=== PATIENT | male | born 1975 | race Caucasian/White ===

== ENCOUNTER 2018-05-01 17:07 | Observation (INO) ==
[2018-05-01] MEDS ORDERED: APRESOLINE INJ 20 MG VIAL IVP PRN (17:52)
[2018-05-01] MEDS ORDERED: NORCO 10/325 TAB PO PRN (17:52)
[2018-05-01] MEDS ORDERED: VALIUM PO ONE (17:53)
[2018-05-01] MEDS ORDERED: AMLODIPINE BESYLATE OLMESARTAN PO SCH (18:00)
--- NOTE | 2018-05-01 18:15 | DR.H&P ---
H&P - History & Physical for Day of: H&P Date: 05/01/18 - Chief Complaint Chief Complaint: ELEVATED BP, DIZZINESS, SWOLLEN ALL OVER, FALL WITH HEAD INJURY , SOB - History of Present Illness History of Present Illness: PT IS 43 WM DIRECT ADMIT FROM DR MARCUS OFFICE AFTER PRESENTING WITH DIFFUSE EDEMA TO FACE ABDOMEN UPPER AND LOWER EXTREMITIES. PT HAS HX OF HTN AND HX NEPHRECTOMY. PT BP IN OFFICE 188/112 WITH BILATERAL LOWER EXTREMITY PITTING EDEMA AND HERRERA. PT SPOUSE STATES SHE HAS BEEN VERY SLEEPY, WEAK AND DIZZINESS, FALLS WITH RECENT HEAD INJURY. PT STATES HE BEEN TAKING MEDICAITON PRESCRIBED. PT ALSO HAD CO NECK AND LOWER BACK PAIN WITH WEAKNESS IN HANDS AND LOWER EXTREMITIES. - Past Medical History Past Medical History: Arthritis, Hypertension - Past Surgical History Surgical History: Other - Family History Family Medical History: Hypertension - Social History Does patient currently use any type of tobacco product: No Have you used tobacco products in the last 12 months: No Type of Tobacco Use: None Does any household member use tobacco: No Alcohol Use: None Drug Use: None - Medications Home Medications: MS No Known Drug Allergy [No Known Drug Allergy] Allergy (Verified 07/25/16 14: 04) - Review of Systems Constitutional: Weakness Eyes: No Symptoms Reported ENT: No Symptoms Reported Respiratory: SOB with Excertion Cardiovascular: Edema Gastrointestinal: Nausea Genitourinary: No Symptoms Reported Musculoskeletal: Arm Pain, Back Pain, Leg Pain, Neck Pain Skin: Wound (SCALP) Neurological: Weakness, Numbness (RIGHT HAND, LOWER EXTREMITIES) - Physical Exam Vital Signs: Blood Pressure [Left Arm] 145/91 Blood Pressure 144/91 Oriented: Normal Eyes: Normal Ear: Normal Nose: Normal Throat: Normal Respiratory: RLL Diminished, LLL Diminished Cardiovascular: Tachycardia, Edema : Normal Auscultation: Bowel Sounds: Normal Palpation: Normal Tenderness: Epigastric Skin: Wound (SF RIGHT SIDE SCALP LACERATION) Musculoskeletal: Wrist, Hand, Back:Thoracic, Back:Lumbar, Tender, Sensory Deficit Psychiatric: Normal Mood Description: Anxious Affect: Anxious Speech Pattern: Clear - Assessment/Plan (1) Hypertensive urgency Status: Acute Plan: ADMIT, SERIAL EKG, CE. ADMISSION LABS CBC CMP UA, CT ABD PELVIS. DECREASE URINE OUTPUT, HTN MANAGEMENT IV HYDRALAZINE. CXR ON ADMISSION, L SPINE , C SPINE MRI. PAIN AND NAUSEA CONTROL (2) SOB (shortness of breath) Status: Acute (3) Edema Status: Acute (4) Hx of unilateral nephrectomy Status: Acute (5) Degenerative joint disease (DJD) of lumbar spine Status: Acute (6) Cervical radiculopathy due to degenerative joint disease of spine Status: Acute (7) Dizziness Status: Acute - Allergies Allergies/Adverse Reactions: Allergies Allergy/AdvReac Type Severity Reaction Status Date / Time MS No Known Drug Allergy Allergy Verified 07/25/16 14:04 [No Known Drug Allergy]
[2018-05-01 18:16] LABS: BASOPHILS # (AUTO) 0.1 X10^3/uL (0.0-0.1); BASOPHILS % (AUTO) 0.7 % (0.2-1.0); EOSINOPHILS # (AUTO) 0.7 x10^3/uL (0.0-0.2); EOSINOPHILS % (AUTO) 6.8 % (0.9-2.9); HEMATOCRIT 36.3 % (42.0-54.0); HEMOGLOBIN 12.2 g/dL (13.5-18.0); LYMPHOCYTES # (AUTO) 2.8 X10^3/uL (1.3-2.9); LYMPHOCYTES % (AUTO) 29.2 % (21.0-51.0); MEAN CORPUSCULAR HEMOGLOBIN 30.8 pg (27.0-34.0); MEAN CORPUSCULAR HGB CONC 33.5 g/dL (33.0-35.0); MEAN CORPUSCULAR VOLUME 91.9 fL (80.0-100.0); MEAN PLATELET VOLUME 7.5 fL (7.4-11.0); MONOCYTES # (AUTO) 0.7 x10^3/uL (0.3-0.8); MONOCYTES % (AUTO) 7.5 % (0.0-13.0); NEUTROPHILS # (AUTO) 5.3 x10^3/uL (2.2-4.8); NEUTROPHILS % (AUTO) 55.8 % (42.0-75.0); PLATELET COUNT 324 X10^3/uL (150.0-450.0); RED BLOOD COUNT 3.95 X10^6/uL (4.7-6.0); RED CELL DISTRIBUTION WIDTH 15.4 % (11.6-16.5); WHITE BLOOD COUNT 9.6 X10^3/uL (3.6-10.0)
[2018-05-01 18:40] LABS: BLOOD UREA NITROGEN 14 mg/dL (7-18); CALCIUM 9.1 mg/dL (8.5-10.1); CARBON DIOXIDE 26.2 mmol/L (21-32); CHLORIDE 106 mmol/L (98-107); CREATININE 1.91 mg/dL (0.70-1.30); SODIUM 140 mmol/L (136-145); TROPONIN I < 0.02 ng/mL (0-1.5); eGFR NON BLACK RACES 41 (>60)
--- NOTE | 2018-05-01 18:44 | RAD ---
HISTORY: Shortness of breath. Study: Single-view chest. Comparison: None. Findings: The trachea is midline. The cardiac silhouette is within normal limits. The lungs are clear without focal infiltrate or effusion. The bony thorax is unremarkable. IMPRESSION: No acute cardiopulmonary disease. Reported By:
[2018-05-01 18:46] LABS: ALANINE AMINOTRANSFERASE 27 Units/L (12-78); ALKALINE PHOSPHATASE 137 Units/L (46-116); ASPARTATE AMINO TRANSFERASE 22 Units/L (15-37); CKMB % 0.7 % (<4); COR CA(FOR HYPOALB) 9.9 mg/dL (8.5-10.1); CREATINE KINASE 307 Units/L (39-308); CREATINE KINASE MB 2.2 ng/mL (0-4.0); TOTAL PROTEIN 7.1 g/dL (6.4-8.2)
--- NOTE | 2018-05-01 18:46 | CT ---
HISTORY: Abdominal pain and distention. Study: CT abdomen and pelvis without contrast Comparison: None. Technique: Multiple axial images of the abdomen and pelvis were obtained from the lung bases to the pubic symphy sis without the administration of IV contrast. Dose reduction techniques including Automated Exposur e Control (AEC) and adjustment of mA and kV were utilized. Limited study secondary to lack of IV and oral contrast. Findings: Bibasilar scarring versus atelectasis. Otherwise, the visualized portions of the lung bases are unrem arkable. The left kidney is surgically absent. The liver, spleen, pancreas, right kidney, and adrena l glands are unremarkable in their CT appearance. The gallbladder is unremarkable in its CT appearanc e. No significant mesenteric lymphadenopathy or stranding can be observed. No free fluid or free ai r is seen within the abdomen. Limited evaluation of the large and small bowel secondary to the lack of oral contrast and collapse. The large and small bowel are otherwise unremarkable. The appendix sagrario ears surgically absent. The urinary bladder is grossly unremarkable. Degenerative changes of the spi ne. No aggressive osseous lesions. IMPRESSION: No CT evidence of acute abdominal/pelvic pathology. Reported By:
[2018-05-01] MEDS: NICOTINE PATCH TD SCH (19:33)
[2018-05-01] MEDS ORDERED: ZESTRIL TAB 10 MG PO ONE (20:21)
[2018-05-01] MEDS ORDERED: NORVASC TAB 10 MG PO ONE (20:21)
[2018-05-01 20:50] VITALS: BMI 31.1
[2018-05-01 20:53] LABS: BILIRUBIN,URINE NEGATIVE (NEGATIVE); BLOOD/HEMOGLOBIN,URINE 1+ (NEGATIVE); GLUCOSE, URINE NEGATIVE (NEGATIVE); KETONES,URINE NEGATIVE (NEGATIVE); LEUKOCYTE ESTERASE ,URINE NEGATIVE (NEGATIVE); NITRITES,URINE NEGATIVE (NEGATIVE); PROTEIN,URINE 4+ (NEGATIVE); UROBILINOGEN,URINE NORMAL (NORMAL)
[2018-05-01 21:00] LABS: APPEARANCE,URINE CLEAR (CLEAR); COLOR,URINE YELLOW (YELLOW); RBC,URINE 0-2 /HPF (NONE SEEN); SQUAMOUS EPITHELIAL CELL,UR FEW /HPF (NEGATIVE)
[2018-05-01 21:01] LABS: BACTERIA,URINE NEGATIVE /HPF (NEGATIVE)
[2018-05-02 06:20] LABS: BASOPHILS % (AUTO) 0.6 % (0.2-1.0); EOSINOPHILS # (AUTO) 0.7 x10^3/uL (0.0-0.2); EOSINOPHILS % (AUTO) 8.7 % (0.9-2.9); HEMATOCRIT 35.9 % (42.0-54.0); HEMOGLOBIN 12.1 g/dL (13.5-18.0); LYMPHOCYTES # (AUTO) 2.4 X10^3/uL (1.3-2.9); LYMPHOCYTES % (AUTO) 29.9 % (21.0-51.0); MEAN CORPUSCULAR HEMOGLOBIN 30.8 pg (27.0-34.0); MEAN CORPUSCULAR HGB CONC 33.8 g/dL (33.0-35.0); MEAN CORPUSCULAR VOLUME 91.2 fL (80.0-100.0); MEAN PLATELET VOLUME 7.8 fL (7.4-11.0); MONOCYTES # (AUTO) 0.7 x10^3/uL (0.3-0.8); MONOCYTES % (AUTO) 8.4 % (0.0-13.0); NEUTROPHILS # (AUTO) 4.2 x10^3/uL (2.2-4.8); NEUTROPHILS % (AUTO) 52.4 % (42.0-75.0); PLATELET COUNT 307 X10^3/uL (150.0-450.0); RED BLOOD COUNT 3.93 X10^6/uL (4.7-6.0); RED CELL DISTRIBUTION WIDTH 15.4 % (11.6-16.5)
[2018-05-02 06:28] LABS: ALANINE AMINOTRANSFERASE 24 Units/L (12-78); ALBUMIN 2.7 g/dL (3.4-5.0); ALKALINE PHOSPHATASE 124 Units/L (46-116); ASPARTATE AMINO TRANSFERASE 18 Units/L (15-37); BLOOD UREA NITROGEN 13 mg/dL (7-18); CALCIUM 8.9 mg/dL (8.5-10.1); CARBON DIOXIDE 23.9 mmol/L (21-32); CHLORIDE 108 mmol/L (98-107); COR CA(FOR HYPOALB) 9.9 mg/dL (8.5-10.1); CREATININE 1.66 mg/dL (0.70-1.30); SODIUM 142 mmol/L (136-145); TOTAL PROTEIN 6.4 g/dL (6.4-8.2); eGFR NON BLACK RACES 48 (>60)
[2018-05-02] MEDS: NICOTINE PATCH TD SCH (08:35)
[2018-05-02] MEDS ORDERED: NS 1000 ML 1,000 ML IV SCH (09:00)
[2018-05-02] MEDS ORDERED: ZESTRIL TAB 10 MG PO SCH (09:00)
[2018-05-02] MEDS ORDERED: NORVASC TAB 10 MG PO SCH (09:00)
[2018-05-02] MEDS ORDERED: VALIUM ONE (09:47)
--- NOTE | 2018-05-02 12:53 | MRI ---
MRI cervical spine without contrast Indication: Neck pain with numbness in both hands Comparison: None Technique: Multiplanar multi sequence MR images of the cervical spine were obtained without contrast. Findings: There is mild straightening of the normal cervical lordosis, which is likely positional. Th ere is no evidence for acute fracture or suspicious marrow lesion. There is increased fluid weighted signal within the central cord at and just below the C6-7 level. The remainder of the cord is otherwi se unremarkable. The lower brain and craniocervical junction appear normal. Multilevel degenerative c hanges are discussed on a level by level basis below. The paravertebral soft tissues are unremarkable . C2-3: Unremarkable C3-4: Unremarkable. C4-5: There is minimal discogenic and uncovertebral degenerative disease, with minimal bilateral neur al foraminal narrowing, without spinal canal narrowing. C5-6: There is discogenic and uncovertebral degenerative disease with broad-based posterior disc bulg e, resulting in mild bilateral neural foraminal narrowing and mild to spinal canal narrowing. C6-7: There is uncovertebral and discogenic degenerative disease with large broad-based posterior dis c bulge that flattens the anterior cord and narrows the canal to 7 mm in the AP direction. There is i ncreased fluid weighted signal within the central portion of the cord at the level of the disc extend ing caudally through the C7 level. There is mild bilateral neural foraminal narrowing. C7-T1: Unremarkable. Impression: There is large posterior disc bulge at C6-7 flattening the cord and significantly narrowing the canal , associated with increased cord signal, suggestive for edema. Neurosurgical evaluation is queta marinelli Reported By:
--- NOTE | 2018-05-02 12:59 | MRI ---
MRI lumbar spine without contrast Indication: Low back pain, lower extremity numbness Comparison: None Technique: Multiplanar multi sequence MR images of the lumbar spine were obtained without contrast. Findings: The lumbar spine alignment is normal. There is no evidence for acute fracture or suspicious marrow lesion. The conus terminates at L1-2. The cauda equina is grossly normal. The paravertebral s oft tissues are unremarkable. T12-L1: Unremarkable. L1-2: Unremarkable. L2-3: Unremarkable. L3-4: There is minimal facet arthropathy with ligamentum flavum thickening, without significant canal or foraminal narrowing. L4-5: There is minimal disc desiccation and broad-based posterior bulge with mild bilateral facet art hropathy with ligamentum flavum thickening resulting in mild left-sided neural foraminal narrowing, w ithout significant right-sided foraminal or spinal canal narrowing. L5-S1: There is mild degenerative disease of the facet joints resulting in mild left neural foraminal narrowing, without significant spinal canal or right foraminal narrowing. Impression: Mild degenerative changes of the lumbar spine, with areas of mild foraminal narrowing as above. No hi gh-grade foraminal or canal narrowing. Reported By:
[2018-05-02] MEDS ORDERED: DECADRON INJ IV ONE (13:20)
[2018-05-02 16:13] VITALS: BP 144/93
[2018-05-02] MEDS ORDERED: DECADRON INJ IV SCH (17:00)
[2018-05-02] MEDS ORDERED: ZESTRIL TAB 10 MG PO ONE (20:21)
[2018-05-02] MEDS ORDERED: NORVASC TAB 10 MG PO ONE (20:21)
--- NOTE | 2018-05-13 08:10 | PCM.DCPLAN ---
Discharge Summary - Admission Date Date of Admission: 05/01/18 - Discharge Date Discharge Date: 05/02/18 - Admission Diagnoses (1) Cervical radiculopathy due to degenerative joint disease of spine Status: Chronic (2) Contusion of left hand Status: Acute (3) Degenerative joint disease (DJD) of lumbar spine Status: Chronic (4) Hx of unilateral nephrectomy Status: Chronic (5) Hypertensive urgency Status: Acute (6) Edema Status: Acute - Discharge Diagnoses Discharge Diagnosis: SAME ADMISSION DIAGNOSIS - Discharge Medications Discharge Medications: Home Medication List lisinopril [Prinivil] 10 mg PO DAILY 05/01/18 [History] Prescriptions: - Hospital Course Vital Signs: Temperature 98.7 F Pulse Rate [Right Brachial] 90 Pulse Rate [Left Brachial] 85 Respiratory Rate 18 Blood Pressure [Right Arm] 144/93 Blood Pressure [Left Arm] 130/80 Blood Pressure 144/91 O2 Sat by Pulse Oximetry 96 Latest Lab Results: Laboratory Last Values WBC 8.0 X10^3/uL (3.6-10.0) 05/02/18 05:08 RBC 3.93 X10^6/uL (4.7-6.0) L 05/02/18 05:08 Hgb 12.1 g/dL (13.5-18.0) L 05/02/18 05:08 Hct 35.9 % (42.0-54.0) L 05/02/18 05:08 MCV 91.2 fL (80.0-100.0) 05/02/18 05:08 MCH 30.8 pg (27.0-34.0) 05/02/18 05:08 MCHC 33.8 g/dL (33.0-35.0) 05/02/18 05:08 RDW 15.4 % (11.6-16.5) 05/02/18 05:08 Plt Count 307 X10^3/uL (150.0-450.0) 05/02/18 05:08 MPV 7.8 fL (7.4-11.0) 05/02/18 05:08 Neut % (Auto) 52.4 % (42.0-75.0) 05/02/18 05:08 Lymph % (Auto) 29.9 % (21.0-51.0) 05/02/18 05:08 [place]lan % (Auto) 8.4 % (0.0-13.0) 05/02/18 05:08 Eos % (Auto) 8.7 % (0.9-2.9) H 05/02/18 05:08 Baso % (Auto) 0.6 % (0.2-1.0) 05/02/18 05:08 Neut # (Auto) 4.2 x10^3/uL (2.2-4.8) 05/02/18 05:08 Lymph # (Auto) 2.4 X10^3/uL (1.3-2.9) 05/02/18 05:08 [place]lan # (Auto) 0.7 x10^3/uL (0.3-0.8) 05/02/18 05:08 Eos # (Auto) 0.7 x10^3/uL (0.0-0.2) H 05/02/18 05:08 Baso # (Auto) 0.0 X10^3/uL (0.0-0.1) 05/02/18 05:08 Absolute Nucleated RBC 0.0 /100WBC 05/02/18 05:08 Sodium 142 mmol/L (136-145) 05/02/18 05:08 Corrected Sodium TNP 05/02/18 05:08 Potassium 3.7 mmol/L (3.5-5.1) 05/02/18 05:08 Chloride 108 mmol/L (98-107) H 05/02/18 05:08 Carbon Dioxide 23.9 mmol/L (21-32) 05/02/18 05:08 BUN 13 mg/dL (7-18) 05/02/18 05:08 Creatinine 1.66 mg/dL (0.70-1.30) H 05/02/18 05:08 Est GFR (MDRD) Af Amer 58 (>60) L 05/02/18 05:08 Est GFR (MDRD) Non-Af 48 (>60) L 05/02/18 05:08 Glucose 102 mg/dL (65-99) H 05/02/18 05:08 Calcium 8.9 mg/dL (8.5-10.1) 05/02/18 05:08 Corrected Calcium 9.9 mg/dL (8.5-10.1) 05/02/18 05:08 Total Bilirubin 0.20 mg/dL (0.2-1.0) 05/02/18 05:08 AST 18 Units/L (15-37) 05/02/18 05:08 ALT 24 Units/L (12-78) 05/02/18 05:08 Alkaline Phosphatase 124 Units/L (46-116) H 05/02/18 05:08 Creatine Kinase 307 Units/L (39-308) 05/01/18 18:03 CK-MB (CK-2) 2.2 ng/mL (0-4.0) 05/01/18 18:03 CK/CKMB % Calc 0.7 % (<4) 05/01/18 18:03 Troponin I < 0.02 ng/mL (0-1.5) 05/01/18 18:03 Total Protein 6.4 g/dL (6.4-8.2) 05/02/18 05:08 Albumin 2.7 g/dL (3.4-5.0) L 05/02/18 05:08 Globulin 3.7 g/dL (2.5-4.5) 05/02/18 05:08 Albumin/Globulin Ratio 0.7 Ratio (1.1-2.1) L 05/02/18 05:08 Specimen Type Clean catch urine 05/01/18 20:45 Urine Color Yellow (YELLOW) 05/01/18 20:45 Urine Appearance Clear (CLEAR) 05/01/18 20:45 Urine pH 5.0 (5.0 - 8.0) 05/01/18 20:45 Ur Specific [place] 1.020 (1.000-1.030) 05/01/18 20:45 Urine Protein 4+ (NEGATIVE) 05/01/18 20:45 Urine Glucose (UA) Negative (NEGATIVE) 05/01/18 20:45 Urine Ketones Negative (NEGATIVE) 05/01/18 20:45 Urine Occult Blood 1+ (NEGATIVE) 05/01/18 20:45 Urine Nitrite Negative (NEGATIVE) 05/01/18 20:45 Urine Bilirubin Negative (NEGATIVE) 05/01/18 20:45 Urine Urobilinogen Normal (NORMAL) 05/01/18 20:45 Ur Leukocyte Esterase Negative (NEGATIVE) 05/01/18 20:45 Urine RBC 0-2 /HPF (NONE SEEN) 05/01/18 20:45 Urine WBC 0-2 /HPF (NONE SEEN) 05/01/18 20:45 Ur Squamous Epith Cells Few /HPF (NEGATIVE) 05/01/18 20:45 Urine Bacteria Negative /HPF (NEGATIVE) 05/01/18 20:45 Ur Culture Indicated? No/not indicated 05/01/18 20:45 Hospital Course: PT IS 43 WM DIRECT ADMIT FROM DR MARCUS OFFICE AFTER PRESENTING WITH DIFFUSE EDEMA TO FACE ABDOMEN UPPER AND LOWER EXTREMITIES. PT HAS HX OF HTN AND HX NEPHRECTOMY. PT BP IN OFFICE 188/112 WITH BILATERAL LOWER EXTREMITY PITTING EDEMA AND HERRERA. PT SPOUSE STATES SHE HAS BEEN VERY SLEEPY, WEAK AND DIZZINESS, FALLS WITH RECENT HEAD INJURY. PT STATES HE BEEN TAKING MEDICAITON PRESCRIBED. PT ALSO HAD CO NECK AND LOWER BACK PAIN WITH WEAKNESS IN HANDS AND LOWER EXTREMITIES. PATIENT HAD CARDIAC MONITORING. WAS TRANSFERRED TO [facility] FOR FURTHER WORKUP. - Discharge Plan Disposition: XF [facility] Condition: Fair - Follow ups/Referrals Follow ups/Referrals: SHELBY OSWALD [Other] JEREMY ARIAS [Primary Care Provider] - 1 WEEK - Instructions Instructions: Contusion
== END 2018-05-02 16:15 | disposition short-term general hospital (02) ==
LOC: MED/SURG
PROVIDERS: ADMIT Internal Medicine; ATTEND Internal Medicine
DX: D64.89 Other specified anemias; M50.123 Cervical disc disorder at C6-C7 level with radiculopathy; Z90.5 Acquired absence of kidney; I16.0 Hypertensive urgency; I10 Essential (primary) hypertension; R94.4 Abnormal results of kidney function studies; R06.02 Shortness of breath; Z91.81 History of falling; R60.0 Localized edema; M13.88 Other specified arthritis, other site; R42 Dizziness and giddiness
CPT/HCPCS: 36415; 71010; 71045; 72141; 72148; 74176; 80053; 81001; 82550; 82553; 84484; 85025; 93005; 93010; A4222; G0378; J1100; J7030

== ENCOUNTER 2025-03-04 10:36 | Inpatient (IN) ==
[2025-03-04] MEDS ORDERED: ULTANE GAS IN ONE (11:25)
[2025-03-04] MEDS ORDERED: D5 1/2 NS 1,000 ML 1,000 ML IV ONE ×2 (11:55→18:11)
[2025-03-04] MEDS: D5 1/2 NS 1,000 ML 1,000 ML IV SCH ×2 (12:00→20:30)
[2025-03-04 12:18] LABS: BASOPHILS # (AUTO) 0.1 X10^3/uL (0.0-0.1); EOSINOPHILS # (AUTO) 0.1 x10^3/uL (0.0-0.2); EOSINOPHILS % (AUTO) 0.9 % (0.9-2.9); HEMATOCRIT 39.5 % (42.0-54.0); HEMOGLOBIN 13.3 g/dL (13.5-18.0); LYMPHOCYTES # (AUTO) 2.6 X10^3/uL (1.3-2.9); LYMPHOCYTES % (AUTO) 21.7 % (21.0-51.0); MEAN CORPUSCULAR HEMOGLOBIN 32.1 pg (27.0-34.0); MEAN CORPUSCULAR HGB CONC 33.7 g/dL (33.0-35.0); MEAN CORPUSCULAR VOLUME 95.3 fL (80.0-100.0); MEAN PLATELET VOLUME 7.6 fL (7.4-11.0); MONOCYTES # (AUTO) 0.5 x10^3/uL (0.3-0.8); MONOCYTES % (AUTO) 4.2 % (0.0-13.0); NEUTROPHILS # (AUTO) 8.8 x10^3/uL (2.2-4.8); NEUTROPHILS % (AUTO) 72.2 % (42.0-75.0); PLATELET COUNT 507 X10^3/uL (150.0-450.0); RED BLOOD COUNT 4.14 X10^6/uL (4.7-6.0); RED CELL DISTRIBUTION WIDTH 16.9 % (11.6-16.5); WHITE BLOOD COUNT 12.1 X10^3/uL (3.6-10.0)
[2025-03-04 12:33] LABS: ALANINE AMINOTRANSFERASE 16 Units/L (12-78); ALBUMIN 3.8 g/dL (3.4-5.0); ALKALINE PHOSPHATASE 167 Units/L (46-116); ASPARTATE AMINO TRANSFERASE 16 Units/L (15-37); BLOOD UREA NITROGEN 36 mg/dL (7-18); CALCIUM 10.4 mg/dL (8.5-10.1); CHLORIDE 102 mmol/L (98-107); CREATININE 2.09 mg/dL (0.70-1.30); GLUCOSE 108 mg/dL (65-99); POTASSIUM 4.3 mmol/L (3.5-5.1); SODIUM 137 mmol/L (136-145); TOTAL PROTEIN 8.6 g/dL (6.4-8.2); eGFR NON BLACK RACES 36 (>60)
[2025-03-04 13:08] VITALS: BMI 29.7
[2025-03-04] MEDS: ROXICODONE TAB 15 MG PO PRN (15:28)
[2025-03-04] MEDS ORDERED: ALPRAZOLAM ODT PO PRN (16:00)
[2025-03-04] MEDS: NICOTINE PATCH TD SCH (17:22)
[2025-03-04] MEDS: CHECK PATCH XX SCH (20:31)
[2025-03-04] MEDS: LEVAQUIN PREMIX IV 500 MG 500 MG/100 ML BAG IV SCH (21:04)
[2025-03-04] MEDS: BUSPAR PO SCH (21:05)
[2025-03-04] MEDS: LIPITOR TAB 10 MG PO SCH (21:05)
[2025-03-04] MEDS: SOMA TAB 350 MG PO SCH (21:05)
[2025-03-04] MEDS: RESTORIL CAP 15 MG PO SCH (21:05)
[2025-03-04] MEDS: ELAVIL PO SCH (21:05)
[2025-03-04] MEDS: SEROquel TAB 25 mg PO SCH (21:05)
[2025-03-04] MEDS: NEURONTIN CAP 300 MG PO SCH (21:05)
[2025-03-05 05:56] LABS: BASOPHILS # (AUTO) 0.1 X10^3/uL (0.0-0.1); BASOPHILS % (AUTO) 1.3 % (0.2-1.0); EOSINOPHILS # (AUTO) 0.2 x10^3/uL (0.0-0.2); EOSINOPHILS % (AUTO) 2.5 % (0.9-2.9); HEMATOCRIT 37.2 % (42.0-54.0); HEMOGLOBIN 12.6 g/dL (13.5-18.0); LYMPHOCYTES # (AUTO) 3.3 X10^3/uL (1.3-2.9); LYMPHOCYTES % (AUTO) 37.4 % (21.0-51.0); MEAN CORPUSCULAR HEMOGLOBIN 32.2 pg (27.0-34.0); MEAN CORPUSCULAR VOLUME 94.8 fL (80.0-100.0); MEAN PLATELET VOLUME 7.6 fL (7.4-11.0); MONOCYTES # (AUTO) 0.9 x10^3/uL (0.3-0.8); MONOCYTES % (AUTO) 9.9 % (0.0-13.0); NEUTROPHILS # (AUTO) 4.3 x10^3/uL (2.2-4.8); NEUTROPHILS % (AUTO) 48.9 % (42.0-75.0); PLATELET COUNT 469 X10^3/uL (150.0-450.0); RED BLOOD COUNT 3.93 X10^6/uL (4.7-6.0); RED CELL DISTRIBUTION WIDTH 16.5 % (11.6-16.5); WHITE BLOOD COUNT 8.8 X10^3/uL (3.6-10.0)
[2025-03-05 06:16] LABS: ALANINE AMINOTRANSFERASE 14 Units/L (12-78); ALBUMIN 3.3 g/dL (3.4-5.0); ALKALINE PHOSPHATASE 154 Units/L (46-116); ASPARTATE AMINO TRANSFERASE 14 Units/L (15-37); BLOOD UREA NITROGEN 32 mg/dL (7-18); CALCIUM 9.9 mg/dL (8.5-10.1); CARBON DIOXIDE 23.8 mmol/L (21-32); CHLORIDE 105 mmol/L (98-107); COR CA(FOR HYPOALB) 10.5 mg/dL (8.5-10.1); GLUCOSE 105 mg/dL (65-99); POTASSIUM 4.5 mmol/L (3.5-5.1); SODIUM 140 mmol/L (136-145); TOTAL PROTEIN 7.5 g/dL (6.4-8.2); eGFR NON BLACK RACES 40 (>60)
--- NOTE | 2025-03-05 08:17 | CT ---
EXAM: UPPER EXT W/O CON HISTORY: LEFT UPPER EXTREMITY REDNESS SWELLING W/ DISCHARGE; CAD, HTN, ,[place], ANGIOPLASTY , ORTHO, KIDNEY REMOVA L COMPARISON: 02/18/2025 TECHNIQUE: CT of the left forearm obtained without IV contrast. Evaluation of the soft tissues is limited due to lack of IV contrast. dose reduction techniques including Automated Exposure Control (AEC) and adjust ment of mA and kV were utilized. FINDINGS: No acute fracture or dislocation. Linear, tubular appearing, obliquely oriented foreign body in the volar forearm overlying the muscula ture with overall extent measuring at least 5.3 cm. Surrounding subcutaneous fatty induration and sm all amount of overlying subcutaneous free gas. IMPRESSION: Linear foreign body measuring approximately 5.3 cm in the volar forearm with surrounding edema and osborn bcutaneous free gas. No acute osseous abnormality. THIS IS AN ELECTRONICALLY VERIFIED FINAL REPORT 03/05/2025 8:14 AM - Electronically signed by Laurent Ponce MD
[2025-03-05] MEDS: DIPRIVAN VIAL 20 ML ONE ×2 (08:18→10:09)
[2025-03-05] MEDS: FENTANYL VIAL INJ 100 mcg ONE (08:18)
[2025-03-05] MEDS: VERSED ONE (08:19)
[2025-03-05] MEDS: ANCEF VIAL 1 GRAM ONE (09:46)
[2025-03-05] MEDS: NS 100 ML IV 100 ML ONE (09:46)
[2025-03-05] MEDS: LR 1,000 ML IV 1,000 ML IV ONE (09:46)
[2025-03-05] MEDS: PEPCID 20 MG VIAL IVP PRN (09:55)
[2025-03-05] MEDS: VERSED IVP PRN (09:55)
[2025-03-05] MEDS: ZOFRAN INJ 4 MG VIAL IVP PRN (09:56)
[2025-03-05] MEDS: LR IV PRN (10:00)
[2025-03-05] MEDS: ANCEF VIAL 1 GRAM IV PRN (10:00)
[2025-03-05] MEDS: BETADINE SOLN ONE (10:00)
[2025-03-05] MEDS: POLYMYXIN B SULFATE ONE (10:00)
[2025-03-05] MEDS ORDERED: XYLOCAINE 2 % (PLAIN) PRN (10:06)
[2025-03-05] MEDS: DIPRIVAN VIAL 250 ML IVP PRN (10:06)
[2025-03-05] MEDS: FENTANYL VIAL INJ 100 mcg IVP PRN (10:19)
[2025-03-05] MEDS ORDERED: ZOFRAN INJ 4 MG VIAL IVP PRN (10:20)
[2025-03-05] MEDS ORDERED: BENADRYL INJ 50 MG VIAL IVP PRN (10:20)
[2025-03-05] MEDS ORDERED: BARHEMSYS INJ IVP PRN (10:20)
[2025-03-05] MEDS ORDERED: REGLAN INJ 10 MG VIAL IVP PRN (10:20)
[2025-03-05] MEDS: EPHEDRINE SULFATE INJ ONE (10:23)
[2025-03-05] MEDS: EPHEDRINE SULFATE INJ IVP PRN (10:39)
[2025-03-05] MEDS: BACTROBAN TOPICAL OINT ONE (10:47)
[2025-03-05] MEDS: DILAUDID INJ ONE (11:17)
[2025-03-05] MEDS: DILAUDID INJ IVP PRN (11:20)
[2025-03-05] MEDS: PROTONIX TAB 40 MG PO SCH (13:03)
[2025-03-05] MEDS: ASPIRIN EC 81 MG PO SCH (13:03)
[2025-03-05] MEDS: ZESTRIL TAB 10 MG PO SCH (13:15)
[2025-03-05 20:20] LABS: BILIRUBIN,URINE NEGATIVE (NEGATIVE); BLOOD/HEMOGLOBIN,URINE NEGATIVE (NEGATIVE); GLUCOSE, URINE NEGATIVE (NEGATIVE); KETONES,URINE NEGATIVE (NEGATIVE); LEUKOCYTE ESTERASE ,URINE NEGATIVE (NEGATIVE); NITRITES,URINE NEGATIVE (NEGATIVE); PROTEIN,URINE 2+ (NEGATIVE); UROBILINOGEN,URINE NORMAL (NORMAL)
[2025-03-05 20:23] LABS: APPEARANCE,URINE CLEAR (CLEAR); COLOR,URINE YELLOW (YELLOW)
[2025-03-05 20:43] LABS: BACTERIA,URINE NEGATIVE /HPF (NEGATIVE); RBC,URINE NONE SEEN /HPF (0-3); SQUAMOUS EPITHELIAL CELL,UR RARE /HPF (NEGATIVE)
[2025-03-06 04:36] VITALS: RESP 19; O2SAT 98
[2025-03-06 06:42] LABS: BASOPHILS # (AUTO) 0.1 X10^3/uL (0.0-0.1); EOSINOPHILS # (AUTO) 0.2 x10^3/uL (0.0-0.2); EOSINOPHILS % (AUTO) 2.3 % (0.9-2.9); HEMATOCRIT 34.1 % (42.0-54.0); HEMOGLOBIN 11.5 g/dL (13.5-18.0); LYMPHOCYTES # (AUTO) 3.1 X10^3/uL (1.3-2.9); LYMPHOCYTES % (AUTO) 30.5 % (21.0-51.0); MEAN CORPUSCULAR HEMOGLOBIN 32.1 pg (27.0-34.0); MEAN CORPUSCULAR HGB CONC 33.6 g/dL (33.0-35.0); MEAN CORPUSCULAR VOLUME 95.6 fL (80.0-100.0); MEAN PLATELET VOLUME 7.9 fL (7.4-11.0); MONOCYTES # (AUTO) 1.3 x10^3/uL (0.3-0.8); MONOCYTES % (AUTO) 12.4 % (0.0-13.0); NEUTROPHILS # (AUTO) 5.6 x10^3/uL (2.2-4.8); NEUTROPHILS % (AUTO) 53.8 % (42.0-75.0); PLATELET COUNT 402 X10^3/uL (150.0-450.0); RED BLOOD COUNT 3.57 X10^6/uL (4.7-6.0); RED CELL DISTRIBUTION WIDTH 16.6 % (11.6-16.5); WHITE BLOOD COUNT 10.3 X10^3/uL (3.6-10.0)
[2025-03-06 06:50] LABS: ALANINE AMINOTRANSFERASE 12 Units/L (12-78); ALBUMIN 2.9 g/dL (3.4-5.0); ALKALINE PHOSPHATASE 153 Units/L (46-116); ASPARTATE AMINO TRANSFERASE 11 Units/L (15-37); BLOOD UREA NITROGEN 28 mg/dL (7-18); CALCIUM 9.5 mg/dL (8.5-10.1); CARBON DIOXIDE 22.8 mmol/L (21-32); CHLORIDE 107 mmol/L (98-107); COR CA(FOR HYPOALB) 10.4 mg/dL (8.5-10.1); CREATININE 2.04 mg/dL (0.70-1.30); GLUCOSE 108 mg/dL (65-99); POTASSIUM 4.4 mmol/L (3.5-5.1); SODIUM 140 mmol/L (136-145); TOTAL PROTEIN 6.6 g/dL (6.4-8.2); eGFR NON BLACK RACES 37 (>60)
[2025-03-06 09:11] VITALS: BP 119/75; PULSE 79; TEMP 98.1
--- NOTE | 2025-03-07 05:58 | RAD ---
EXAM: CHEST, 1 VIEW HISTORY: PRE-OP fb removal; COMPARISON: 11/28/2023 FINDINGS: The cardiomediastinal silhouette is stable. No acute airspace disease. No pneumothorax or effusion. No acute osseous abnormality. ACDF hardware. IMPRESSION: No acute cardiopulmonary disease. THIS IS AN ELECTRONICALLY VERIFIED FINAL REPORT 03/07/2025 5:54 AM - Electronically signed by Laurent Ponce MD
== END 2025-03-06 10:30 | disposition home or self-care (01) | DRG 580 ==
LOC: MED/SURG 11:25
PROVIDERS: ADMIT Surgery; ATTEND Surgery